=== PATIENT | male | born 1950 ===

== ENCOUNTER 2017-09-22 04:29 | Outpatient (CLI) | payer MEDICARE ==
[2017-09-22 04:51] LABS: Vancomycin, Trough 14.4 ug/mL
== END 2017-09-22 04:30 | disposition home or self-care (01) ==
LOC: NAV LABSP 04:29
PROVIDERS: ATTEND Internal Medicine
DX: Z48.812 Encounter for surgical aftercare following surgery on the circulatory system (principal); Z95.1 Presence of aortocoronary bypass graft
CPT/HCPCS: 80202

== ENCOUNTER 2017-10-05 18:10 | Outpatient (CLI) | payer MEDICARE ==
[2017-10-05 18:42] LABS: Vancomycin, Trough 15.9 ug/mL
== END 2017-10-05 18:11 | disposition home or self-care (01) ==
LOC: NAV LAB 18:10
PROVIDERS: ATTEND Internal Medicine
DX: M86.9 Osteomyelitis, unspecified (principal)
CPT/HCPCS: 80202

== ENCOUNTER 2017-10-10 07:13 | Outpatient (CLI) | payer SELFPAY ==
[2017-10-10 07:41] LABS: Vancomycin, Trough 24.4 ug/mL
[2017-10-10 11:39] LABS: #Eosinphils 0.4 thou/uL (0.0-0.7); #Lymphocytes 1.2 thou/uL (1.20-3.40); #Monocytes 0.9 thou/uL (0.11-0.59); #Neutrophils 4.9 thou/uL (1.40-6.50); %Basophils 0.6 % (0.0-1.0); %Eosinophils 5.3 % (0.0-10.0); %Lymphocytes 15.7 % (21.0-51.0); %Monocytes 11.7 % (0.0-10.0); %Neutrophils 66.7 % (42.0-75.0); Hemoglobin 9.5 g/dL (14.0-18.0); Mean Corpuscular HGB CONC 32.2 g/dL (32.0-36.0); Mean Corpuscular Hemoglobin 29.7 pg (27.0-31.0); Mean Corpuscular Volume 92.3 fl (80.0-94.0); Mean Platelet Volume 7.5 fL (7.4-10.4); Platelet Count 242 thou/uL (130-400); RBC Distribution Width 13.3 % (11.5-14.5); Red Blood Cell (RBC) Count 3.21 mill/uL (4.70-6.10); White Blood Cell (WBC) Count 7.3 thou/uL (4.8-10.8)
[2017-10-10 12:11] LABS: ALT (SGPT) 15 U/L (8-55); AST (SGOT) 12 U/L (5-34); Alkaline Phosphatase 61 U/L (40-150); Anion Gap 13 mmol/L (10-20); BUN (Urea Nitrogen) 37 mg/dL (8.4-25.7); Bilirubin, Total 0.2 mg/dL (0.2-1.2); CRP (Inflammatory) 1.18 mg/dL (= or < 0.5); Calc. Creatinine Clearance 0 mL/min (70-130); Carbon Dioxide 29 mmol/L (23-31); Chloride 102 mmol/L (98-107); Estimated GFR-MDRD 56; Potassium 4.7 mmol/L (3.5-5.1); Sodium 139 mmol/L (136-145)
[2017-10-10 12:30] LABS: Glucose 51 mg/dL (80-115)
== END 2017-10-10 07:14 | disposition home or self-care (01) ==
LOC: NAV LABSP 07:13
PROVIDERS: ATTEND Internal Medicine
DX: M86.9 Osteomyelitis, unspecified (principal)
CPT/HCPCS: 36415; 80053; 80202; 85025; 86140

== ENCOUNTER 2017-10-18 07:03 | Outpatient (CLI) | payer SELFPAY ==
[2017-10-18 09:21] LABS: #Basophils 0.1 thou/uL (0.0-0.2); #Eosinphils 0.4 thou/uL (0.0-0.7); #Lymphocytes 1.2 thou/uL (1.20-3.40); #Monocytes 0.6 thou/uL (0.11-0.59); #Neutrophils 3.2 thou/uL (1.40-6.50); %Eosinophils 7.1 % (0.0-10.0); %Lymphocytes 21.2 % (21.0-51.0); %Monocytes 10.9 % (0.0-10.0); %Neutrophils 58.7 % (42.0-75.0); Hemoglobin 8.8 g/dL (14.0-18.0); Mean Corpuscular HGB CONC 31.9 g/dL (32.0-36.0); Mean Corpuscular Hemoglobin 27.5 pg (27.0-31.0); Mean Corpuscular Volume 86.3 fl (80.0-94.0); Mean Platelet Volume 7.8 fL (7.4-10.4); Platelet Count 217 thou/uL (130-400); Red Blood Cell (RBC) Count 3.19 mill/uL (4.70-6.10); White Blood Cell (WBC) Count 5.4 thou/uL (4.8-10.8)
[2017-10-18 09:33] LABS: ALT (SGPT) 14 U/L (8-55); AST (SGOT) 11 U/L (5-34); Albumin 3.7 g/dL (3.4-4.8); Alkaline Phosphatase 59 U/L (40-150); Anion Gap 16 mmol/L (10-20); BUN (Urea Nitrogen) 36 mg/dL (8.4-25.7); Bilirubin, Total 0.3 mg/dL (0.2-1.2); Calc. Creatinine Clearance 0 mL/min (70-130); Calcium 9.5 mg/dL (7.8-10.44); Carbon Dioxide 25 mmol/L (23-31); Chloride 104 mmol/L (98-107); Estimated GFR-MDRD 47; Globulin 2.8 g/dL (2.4-3.5); Glucose 85 mg/dL (80-115); Potassium 4.5 mmol/L (3.5-5.1); Protein, Total 6.5 g/dL (5.8-8.1); Sodium 140 mmol/L (136-145)
[2017-10-18 12:01] LABS: CRP (Inflammatory) Less than 0.50 mg/dL (= or < 0.5)
[2017-10-18 14:12] LABS: Vancomycin, Trough 19.4 ug/mL
== END 2017-10-18 07:04 | disposition home or self-care (01) ==
LOC: NAV LABSP 07:03
PROVIDERS: ATTEND Internal Medicine
DX: E11.9 Type 2 diabetes mellitus without complications (principal); E78.5 Hyperlipidemia, unspecified; M86.9 Osteomyelitis, unspecified
CPT/HCPCS: 36415; 80053; 80202; 85025; 85652; 86140

== ENCOUNTER 2017-10-24 07:58 | Outpatient (CLI) | payer MEDICARE | END 2017-10-24 07:59 | disposition home or self-care (01) | LOC: NAV LABSP 07:58 | PROVIDERS: ATTEND Internal Medicine | DX: M86.9 Osteomyelitis, unspecified (principal) | CPT/HCPCS: 80202 ==

== ENCOUNTER 2023-12-23 21:19 | Emergency (ER) | payer MEDICARE ==
[2023-12-23 21:42] LABS: #Basophils 0.1 thou/uL (0.0-0.2); #Eosinphils 0.4 thou/uL (0.0-0.7); #Lymphocytes 1.7 thou/uL (1.20-3.40); #Monocytes 0.9 thou/uL (0.11-0.59); #Neutrophils 4.9 thou/uL (1.40-6.50); %Basophils 1.6 % (0.0-1.0); %Eosinophils 4.4 % (0.0-10.0); %Lymphocytes 21.2 % (21.0-51.0); %Monocytes 11.5 % (0.0-10.0); %Neutrophils 61.3 % (42.0-75.0); Hematocrit 29.7 % (42.0-52.0); Hemoglobin 9.3 g/dL (14.0-18.0); Mean Corpuscular HGB CONC 31.4 g/dL (32.0-36.0); Mean Corpuscular Hemoglobin 30.3 pg (27.0-31.0); Mean Corpuscular Volume 96.3 fl (78.0-98.0); Mean Platelet Volume 6.1 fL (7.4-10.4); Platelet Count 247 10x3/uL (130-400); RBC Distribution Width 13.8 % (11.5-14.5); Red Blood Cell (RBC) Count 3.08 mill/uL (4.70-6.10); White Blood Cell (WBC) Count 7.9 10x3/uL (4.8-10.8)
[2023-12-23] MEDS ORDERED: Ipratropium/Albuterol 3 ML NEB ONE (21:49)
[2023-12-23] MEDS ORDERED: Nitroglycerin 2% Ointment 1 INCH/1 GM Packet ONE (21:49)
[2023-12-23] MEDS ORDERED: Furosemide 40 MG (4 mL) VIAL ONE (21:49)
[2023-12-23] MEDS ORDERED: methylPREDNISolone Sod Succ/PF 125 MG/2 ML VIAL ONE (21:49)
[2023-12-23 21:57] LABS: ALT (SGPT) 17 U/L (8-55); AST (SGOT) 18 U/L (5-34); Alkaline Phosphatase 73 U/L (40-110); Anion Gap 18 mmol/L (10-20); BUN (Urea Nitrogen) 25 mg/dL (8.4-25.7); Bilirubin, Total 0.3 mg/dL (0.2-1.2); Calc. Creatinine Clearance 0 mL/min (70-130); Calcium 8.9 mg/dL (7.8-10.44); Carbon Dioxide 23 mmol/L (23-31); Chloride 106 mmol/L (98-107); Estimated GFR 45; Globulin 3.2 g/dL (2.4-3.5); Glucose 188 mg/dL (83-110); Potassium 3.6 mmol/L (3.5-5.1); Protein, Total 7.2 g/dL (5.8-8.1); Sodium 143 mmol/L (136-145)
[2023-12-23 21:58] LABS: Troponin I 0.014 ng/mL (< 0.028)
[2023-12-23] MEDS ORDERED: Sodium Chloride 0.9% 100 ML ONE (22:37)
[2023-12-23] MEDS ORDERED: Cefepime 2 GM VIAL ONE (22:37)
[2023-12-23 22:50] LABS: SARS-CoV-2 E Target Negative; SARS-CoV-2 N2 Target Negative; SARS-CoV-2 NAA Rapid Test Not Detected (NotDetected); SARS-CoV-2 RdRP gene Negative
[2023-12-23] MEDS ORDERED: LevoFLOXacin 750 mg/D5W 150 ml Premix Bag ONE (23:12)
== END 2023-12-24 00:26 | disposition short-term general hospital (02) ==
LOC: NAV ERS 21:19
DX: J18.9 Pneumonia, unspecified organism (principal); D64.9 Anemia, unspecified; R06.02 Shortness of breath; R09.02 Hypoxemia; I50.9 Heart failure, unspecified; J44.9 Chronic obstructive pulmonary disease, unspecified; E11.9 Type 2 diabetes mellitus without complications
CPT/HCPCS: 71045; 80053; 83880; 84484; 85025; 87040; 87149 ×2; 93005; 94640; 94760; 96365; 96375; 99285; U0002; J0692; J1940; J1956; J2930; J3490; J7620